=== PATIENT | male | born 1995 | race Caucasian/White ===

== ENCOUNTER 2017-01-30 05:05 | Emergency (ER) | payer MEDICAID ==
[2017-01-30 05:10] VITALS: BP 108/69; PULSE 61; RESP 18; TEMP 97.5; O2SAT 97
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
== END 2017-01-30 05:31 | disposition home or self-care (01) ==
DX: R23.8 Other skin changes (principal); F17.200 Nicotine dependence, unspecified, uncomplicated

== ENCOUNTER 2017-05-29 15:20 | Emergency (ER) | payer OTHER, MEDICAID ==
[2017-05-29 15:29] VITALS: TEMP 98.2
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
[2017-05-29] MEDS ORDERED: IBUPROFEN 600 MG TAB PO ONE (16:11)
[2017-05-29 16:15] VITALS: BP 129/80; PULSE 81; RESP 18; O2SAT 97
== END 2017-05-29 16:15 | disposition home or self-care (01) ==
LOC: EDUNIT#
DX: S60.212A Contusion of left wrist, initial encounter (principal); S30.0XXA Contusion of lower back and pelvis, initial encounter; F17.200 Nicotine dependence, unspecified, uncomplicated; V13.4XXA Pedal cycle driver injured in collision with car, pick-up truck or van in traffic accident, initial encounter; Y92.89 Other specified places as the place of occurrence of the external cause; Y99.8 Other external cause status; Y93.55 Activity, bike riding